=== PATIENT | male | born 1990 | race Caucasian/White ===

== ENCOUNTER 2019-12-20 07:56 | Outpatient (CLI) | payer MEDICAID, SELFPAY ==
--- NOTE | 2019-12-20 08:00 | CT_ITS ---
WS: [id number] CT NECK WITH CONTRAST HISTORY: NECK MASS TECHNIQUE: Contiguous 5 mm axial images are performed through the neck with intravenous contrast. Sag ittal and coronal reformats are also submitted. All CT scans at [facility] use at least o ne of these dose optimization techniques: automated exposure control; mA and/or kV adjustment per pat ient size (includes targeted exams where dose is matched to clinical indication); or iterative recons truction. CONTRAST: CONTRAST: Omnipaque 300; 95 mL IV. DLP: 3087.94 mGycm COMPARISON: None available. Palpable areas marked with a BB. This palpable area is just to the RIGHT of the thyroid cartilage. Nasopharynx, oropharynx, hypopharynx and larynx are unremarkable. No soft tissue masses or abnormal e nhancement. Torus tubarius and fossa of Rosenmuller and parapharyngeal fat are normal. Benign bilateral cervical chain lymph nodes. Thyroid gland and salivary glands are normally enhancing with no masses. No osseous abnormalities. Visualized portions of the skull base demonstrate no abnormalities. Orbits and globes are within norm al limits. No soft tissue masses. Small mucous retention cyst in the LEFT maxillary sinus. Lung apices are clear. CT/CT neck w con* [id number] IMPRESSION: 1. No neck mass or adenopathy to correspond to the palpable abnormality. 2. Benign cervical chain lymph nodes.
[2019-12-20] MEDS: iohexol 300 mg/mL 100 mL Btl IV (09:05)
== END 2019-12-20 07:57 | disposition home or self-care (01) ==
LOC: RADWPI 07:59
PROVIDERS: Family Provider Electrodiagnostic Medicine; PCP Electrodiagnostic Medicine; Visit Provider Electrodiagnostic Medicine
DX: R22.1 Localized swelling, mass and lump, neck (principal)
CPT/HCPCS: 70491; Q9967

== ENCOUNTER → 2020-03-30 14:12 | Outpatient (BNVA) | payer MEDICAID, SELFPAY | PROVIDERS: Family Provider Electrodiagnostic Medicine; PCP Electrodiagnostic Medicine; Visit Provider Nurse Practitioner Family | DX: Z20.822 Contact with and (suspected) exposure to COVID-19 (principal) | CPT/HCPCS: 87635 ==

== ENCOUNTER → 2021-03-05 11:20 | Outpatient (BNVA) | payer MEDICAID, SELFPAY | PROVIDERS: Family Provider Electrodiagnostic Medicine; PCP Electrodiagnostic Medicine; Visit Provider Nurse Practitioner Family | DX: Z20.828 Contact with and (suspected) exposure to other viral communicable diseases (principal) | CPT/HCPCS: 87426 ==

== ENCOUNTER 2024-09-02 17:21 | Emergency (ER) | payer MEDICAID, SELFPAY ==
--- NOTE | 2024-09-02 17:30 | ECG_ITS ---
[employer] Test Date: 2024-09-02 Pat Name: Pablo Hearn Department: Room: Gender: Male Pump Attendant: : 1990 Requested By: Amber Loyd Order Number: [id number] Reading MD: Measurements Intervals Jackpot Rate: 66 P: -4 TN: 165 QRS: -29 QRSD: 92 T: -4 QT: 371 QTc: 389 Interpretive Statements SINUS RHYTHM WITH SINUS ARRHYTHMIA BORDERLINE LEFT AXIS DEVIATION [QRS AXIS < -20] VOLTAGE CRITERIA FOR LVH [MEETS CRITERIA IN ONE OF: R(aVL), S(V1), R(V5), R(V5/V6)+S(V1)] No previous ECG available for comparison [email or web address] [id number]
[2024-09-02 17:31] VITALS: BP 144/79; PULSE 66; RESP 14; TEMP 36.7; O2SAT 100; BMI 21.4
--- NOTE | 2024-09-02 18:19 | XRR_ITS ---
PROCEDURE INFORMATION: Exam: XR Chest Exam date and time: 09/02/2024 6:22 PM Age: 33 years old Clinical indication: Pain; Chest pressure; Additional info: Chest pain TECHNIQUE: Imaging protocol: Radiologic exam of the chest. Views: 1 view. COMPARISON: CT neck w con* [id number] 12/20/2019 9:00 AM FINDINGS: Lungs: Lungs are hyperinflated. No focal consolidation. Pleural spaces: Unremarkable. No pleural effusion. No pneumothorax. Heart/Mediastinum: Unremarkable. No cardiomegaly. Bones/joints: Unremarkable. XR/XR chest 1V portable [id number] IMPRESSION: No acute cardiopulmonary findings.
[2024-09-02 18:47] LABS: Hematocrit 43.2 % (37-53); Hemoglobin 14.50 g/dL (11.27-16.99); Mean Corpuscular HGB Conc 33.6 g/dL (30-55); Mean Corpuscular Hemoglobin 29.2 pg (27-33); Mean Corpuscular Volume 86.9 fl (82-101); Nucleated Red Blood Cells % 0 %; Platelet Count 268 10^3/cmm (157-399); Red Blood Count 4.97 10^6/uL (3.85-5.65); White Blood Count 6.60 10^3/uL (3.29-11.43)
[2024-09-02 19:06] LABS: Alanine Aminotransferase 10 U/L (0-41); Albumin Level 4.5 g/dL (3.5-5.2); Alkaline Phosphatase 54 U/L (40-130); Aspartate Amino Transferase 11 U/L (0-40); Blood Urea Nitrogen 15 mg/dL (6-20); Calcium 9.1 mg/dL (8.5-10.5); Carbon Dioxide 25 mmol/L (22-29); Chloride 103 mmol/L (98-107); Creatinine Clr Calc Pharmacy 172.6564; Globulin 2.5 g/dL (1.3-4.6); Glucose 85 mg/dL (65-115); Lipase 22 U/L (13-60); Osmolality Calculated 290 mOsm/kg (285-295); Sodium 140 mmol/L (136-145); Total Protein 7.0 g/dL (6.6-8.7)
[2024-09-02 19:18] LABS: Anion Gap 16.1 (5-19); Potassium 4.1 mmol/L (3.5-5.1)
--- NOTE | 2024-09-02 20:34 | W.ED.CHESTPA ---
HPI - Chest Pain General: Chief Complaint: Chest Pain Stated Complaint: cp pain, arm pain Time Seen by Provider: 09/02/24 17:52 History of Present Illness: 33-year-old male patient presents to the emergency department stating he was helping his dad lift several panels that were very heavy for several hours and when riding home developed chest pain. Patient arrives to the emergency department chest pain-free patient denies any shortness of breath patient's pain is reproduced to simple when I palpate across his chest. Patient denies any cough or congestion or any recent illness Related Data Home Medications ?Medication ?Instructions ?Recorded ?Confirmed divalproex 250 mg tablet,extended 750 mg PO QAM 09/02/24 09/02/24 release 24 hr Allergies Allergy/AdvReac Type Severity Reaction Status Date / Time No Known Allergies Allergy Verified 09/02/24 17:34 Review of Systems General: Reports: 10 or more systems reviewed and unremarkable except in HPI and below Physical Exam Const: COMMON NORMALS: no acute distress, patient oriented x3 and no limitations HENMT: COMMON NORMALS: normocephalic, atraumatic and hearing grossly normal bilaterally HEAD & SCALP: normocephalic and atraumatic Eye: COMMON NORMALS: Equal, round and reactive pupils present, EOMs intact bilaterally and conjunctivae normal CONJUNCTIVA: Yes conjunctivae normal PUPIL: Yes Equal, round and reactive pupils present Neck/C-Spine: COMMON NORMALS: full ROM, no lymphadenopathy, supple and no meningeal signs Chest: COMMONS NORMALS: normal inspection of the chest and normal palpation of entire chest wall (tender) Resp: COMMON NORMALS: normal respiratory effort, No retractions, No use of accessory muscles and clear to auscultation bilaterally AUSCULTATION: clear to auscultation bilaterally Cardio: COMMON NORMALS: regular rate and regular rhythm RATE: regular rate RHYTHM: regular rhythm GI: COMMON NORMALS: Normal to inspection, nondistended, normoactive bowel sounds present, Soft to palpation and non-tender PALPATION: Yes Soft to palpation : COMMON NORMALS: Yes no CVA tenderness BLADDER/KIDNEY EXAM: Yes no CVA tenderness Back/Pelvis: COMMON NORMALS: no CVA tenderness, thoracic and lumbar spine normal to inspection, no thoracic nor lumbar tenderness and thoraco-lumbar ROM normal Extremity: GENERAL: Yes normal exam except as noted Neuro: COMMON NORMALS: patient oriented x3, CN's II-XII intact bilaterally, moves all extremities, no focal motor deficits and no sensory deficits noted MENINGEAL SIGNS: Yes no meningeal signs CRANIAL NERVES: Yes CN normal except as noted COORDINATION/BALANCE: [id number]-nk-[id number] test normal, fuba-hp-ycpt test normal and tandem gait normal SPEECH: speech normal GAIT: Yes Normal gait present SENSORY EXAM: Yes extremities (normal) MOTOR EXAM: 5/5 motor strength present throughout COORDINATION: gfwwjy-nu-nphb test normal, zixb-sz-nyqu test normal and tandem gait normal Psych: COMMON NORMALS: mental status grossly normal, Normal thought process present, cooperative, normal affect, speech normal, activity/motor behavior normal, denies hallucinations, denies homicidal ideation and denies suicidal ideation SPEECH: Yes normal speech THOUGHT PROCESS: Normal thought process present Skin: COMMON NORMALS: no rashes or lesions noted and turgor normal GENERAL SKIN EXAM: no rashes or lesions noted, elasticity normal and turgor normal Course Vital Signs: Vital signs: Vital Signs Temperature 98.0 F 09/02/24 17:31 Pulse Rate 66 09/02/24 17:31 Respiratory Rate 14 09/02/24 17:31 Blood Pressure 144/79 09/02/24 17:31 Pulse Oximetry 100 09/02/24 17:31 MDM - Chest Pain Medical Decision Making 33-year-old male patient presents to the emergency department stating he was helping his dad lift several panels that were very heavy for several hours and when riding home developed chest pain. Patient arrives to the emergency department chest pain-free patient denies any shortness of breath patient's pain is reproduced to simple when I palpate across his chest. Patient denies any cough or congestion or any recent illness. Patient is well-appearing nontoxic and in no acute distress. Labs are unremarkable EKG reveals sinus rhythm at a rate of 66 bpm patient has had normal vital signs while in the emergency department chest x-ray does not reveal any concerning findings. Patient did have tingling to the left arm patient states it is intermittent and with movement but patient denies any neck pain patient denies any headache or head pain patient denies any trauma or injury to the arm. I did recommend ordering CT head patient states he does not want a CT head at this time family at bedside states they did not feel a CT was warranted. I explained explained my concerns and they stated that if patient had continued issues or worsening they would return for CT head and would follow-up with her primary care physician. Patient is not tachycardic and does not have any shortness of breath or dizziness therefore I do not feel PE is a concern at this time patient has had no episodes of chest pain while here in the emergency department. Patient did have some tenderness when palpating across his chest wall consistent with costochondritis I have recommended 100 mg of ibuprofen 3 times a day for a short term I discussed return precautions with patient as well as follow-up patient and family verbalized understanding at this point patient is medically cleared and appropriate for discharge I did discuss this case with Dr. Giraldo. Lab Data 09/02/24 18:41 09/02/24 18:41 Laboratory Results WBC 6.60 10^3/uL (3.29-11.43) 09/02/24 18:41 RBC 4.97 10^6/uL (3.85-5.65) 09/02/24 18:41 Hgb 14.50 g/dL (11.27-16.99) 09/02/24 18:41 Hct 43.2 % (37-53) 09/02/24 18:41 MCV 86.9 fl (82-101) 09/02/24 18:41 MCH 29.2 pg (27-33) 09/02/24 18:41 MCHC 33.6 g/dL (30-55) 09/02/24 18:41 RDW 12.1 % (12.1-15.1) 09/02/24 18:41 Plt Count 268 10^3/cmm (157-399) 09/02/24 18:41 MPV 8.9 fL (7.4-10.4) 09/02/24 18:41 Neut % (Auto) 50.2 % 09/02/24 18:41 Lymph % (Auto) 36.1 % 09/02/24 18:41 [place] % (Auto) 9.1 % 09/02/24 18:41 Eos % (Auto) 3.5 % 09/02/24 18:41 Baso % (Auto) 0.9 % 09/02/24 18:41 Neut # (Auto) 3.32 10^3/uL (1.8-7.7) 09/02/24 18:41 Lymph # (Auto) 2.4 10^3/uL (0.8-4.8) 09/02/24 18:41 [place] # (Auto) 0.6 10^3/uL (0.2-0.9) 09/02/24 18:41 Eos # (Auto) 0.2 10^3/uL (0.0-0.8) 09/02/24 18:41 Baso # (Auto) 0.1 10^3/uL (0.0-0.1) 09/02/24 18:41 Nucleated RBC % (auto) 0 % 09/02/24 18:41 Nucleated RBCs # 0.0 /100WBC 09/02/24 18:41 Sodium 140 mmol/L (136-145) 09/02/24 18:41 Potassium 4.1 mmol/L (3.5-5.1) 09/02/24 18:41 Chloride 103 mmol/L (98-107) 09/02/24 18:41 Carbon Dioxide 25 mmol/L (22-29) 09/02/24 18:41 Anion Gap 16.1 (5-19) 09/02/24 18:41 BUN 15 mg/dL (6-20) 09/02/24 18:41 Creatinine 0.8 mg/dL (0.7-1.2) 09/02/24 18:41 GFR Calculation 111.3 mL/min (90-130) 09/02/24 18:41 Glucose 85 mg/dL (65-115) 09/02/24 18:41 Calculated Osmolality 290 mOsm/kg (285-295) 09/02/24 18:41 Calcium 9.1 mg/dL (8.5-10.5) 09/02/24 18:41 Total Bilirubin 0.2 mg/dL (0.15-1.2) 09/02/24 18:41 AST 11 U/L (0-40) 09/02/24 18:41 ALT 10 U/L (0-41) 09/02/24 18:41 Alkaline Phosphatase 54 U/L (40-130) 09/02/24 18:41 Total Protein 7.0 g/dL (6.6-8.7) 09/02/24 18:41 Albumin 4.5 g/dL (3.5-5.2) 09/02/24 18:41 Globulin 2.5 g/dL (1.3-4.6) 09/02/24 18:41 Lipase 22 U/L (13-60) 09/02/24 18:41 All radiology interpretation(s) finalized by discharge Discharge Plan Discharge Patient Disposition: Home Clinical Impression: Acute costochondritis Condition: Stable Prescriptions: No Action divalproex 250 mg tablet extended release 24 hr 750 mg PO QAM Discharge Orders: Discharge ED (Routine); Ordered 09/02/24 Ordered By: Amber Loyd Referrals: Tobias Dinero DO [Primary Care Provider, [facility]] Discharge Diet: Advance as tolerated Discharge Activity: Increase activity as tolerated Patient Instructions: Opioid Safety, Pain Management, Patient Portal & Emi Instructions, Costochondritis - Adult Activity Restrictions/Additional Instructions: Please return to ER with any chest pain, numbness, weakness, shortness of breath or any worsening of symptoms or concerns Follow up with PCP Follow discharge instrictions as [rovided Print Language: Namibian Coding Level of Care Code ED Computer Help Desk Representative for Shaun Hou
[2024-09-02 20:53] VITALS: BP 128/72; PULSE 72; O2SAT 97
== END 2024-09-02 20:54 | disposition home or self-care (01) ==
PROVIDERS: Emergency Provider Registered Nurse; PCP Electrodiagnostic Medicine
DX: M94.0 Chondrocostal junction syndrome [Tietze] (principal)
CPT/HCPCS: 71045; 80053; 83690; 85025; 93005; 93010; 99285